=== PATIENT | male | born 1930 | race Caucasian/White ===

== ENCOUNTER 2016-06-13 11:33 | Inpatient (IN) | payer MEDICARE, OTHER ==
[~2016-06-13] VITALS: Ht 182.9 cm; Wt 97.5 kg
[~2016-06-13 11:33] MED LIST: ASPI-482 PO; DIGO125T PO; LISI10TA2 PO; LOSA50TA6 PO; METO50TA2 PO; OMEG1CAP16 PO; SIMV40TA3 PO
[2016-06-13] MEDS ORDERED: IV NORMAL SALINE 500ML BAG 500 ML IV ONE (12:00)
[2016-06-13] MEDS ORDERED: ONDANSETRON PF 4 MG/2 ML VIAL. IV ONE (12:00)
[2016-06-13 12:18] LABS: BASO % 0 % (0-3); EOS % 1 % (0-3); HEMOGLOBIN 12.7 g/dL (13.0-17.5); LYMPH # 1.2 x10^3/uL (1.0-4.8); LYMPH % 14 % (24-48); MEAN CORPUSCULAR HEMOGLOBIN 30 pg (25-35); MEAN CORPUSCULAR HGB CONC 33 g/dL (31-37); MEAN CORPUSCULAR VOLUME 92 fL (79-100); MONO % 7 % (0-9); NEUT % 78 % (31-73); PLATELET COUNT 159 x10^3/uL (140-400); RED BLOOD COUNT 4.24 x10^6/uL (4.30-5.70); RED CELL DISTRIBUTION WIDTH 14.4 % (11.5-14.5); WHITE BLOOD COUNT 8.4 x10^3/uL (4.0-11.0)
--- NOTE | 2016-06-13 12:18 | PHYS DOC ---
Past Medical History Past Medical History: A-Fib, DVT, High Cholesterol, Hypertension, [place] Past Surgical History: Coronary Bypass Surgery, Other Additional Past Surgical Histo: RIGHT ARM & LEG SURGERY Alcohol Use: None Drug Use: None Adult General Chief Complaint Chief Complaint: NAUSEA/VOMITING/DIARRHA HPI HPI 85-year-old male whose presenting after a syncopal episode earlier today who is had ongoing nausea vomiting and diarrhea for the last several days. Patient denies any abdominal pain. He denies any chest pain. Patient is mildly short of breath with his symptoms. Patient only requires supplementary oxygen at night for history of sleep apnea. He has history of open heart surgery several years ago. He also has history of hypertension. believes he's had several syncopal episodes today and that is why she called EMS. Currently the patient feels weak but is able to answer my questions and follow my commands. He denies any specific complaints at this time. Review of Systems Review of Systems Constitutional: Denies fever or chills [] Eyes: Denies change in visual acuity, redness, or eye pain [] HENT: Denies nasal congestion or sore throat [] Respiratory: Denies cough or shortness of breath [] Cardiovascular: No additional information not addressed in HPI [] GI: Denies abdominal pain, has nausea, has vomiting, denies bloody stools, has diarrhea [] : Denies dysuria or hematuria [] Musculoskeletal: Denies back pain or joint pain [] Integument: Denies rash or skin lesions [] Neurologic: Denies headache, focal weakness or sensory changes [] Endocrine: Denies polyuria or polydipsia [] Current Medications Current Medications Current Medications Medications (Trade) Dose Ordered Sig/Minnie Start Time Stop Time Status Last Admin Dose Admin Ondansetron HCl 4 mg 4 mg 1X ONCE 06/13/16 12:00 06/13/16 12:03 DC 06/13/16 12:19 4 MG Sodium Chloride (Iv Sodium Chloride 0.9% 500ml Bag) 500 ml @ 500 mls/hr 1X ONCE 06/13/16 12:00 06/13/16 12:59 06/13/16 12:17 500 MLS/HR Allergies Allergies Allergies Coded Allergies Type Severity Reaction Last Updated Verified Penicillins Allergy Intermediate 06/13/16 Yes diphenhydramine Allergy Intermediate 06/13/16 Yes codeine Allergy Unknown 06/13/16 No Physical Exam Physical Exam Constitutional: Well developed, well nourished, no acute distress, non-toxic appearance. [] HENT: Normocephalic, atraumatic, bilateral external ears normal, oropharynx moist, no oral exudates, nose normal. [] Eyes: PERRLA, EOMI, conjunctiva normal, no discharge. [] Neck: Normal range of motion, no tenderness, supple, no stridor. [] Cardiovascular:Heart rate regular rhythm, no murmur [] Lungs & Thorax: Bilateral breath sounds clear to auscultation [] Abdomen: Bowel sounds normal, soft, no tenderness, no masses, no pulsatile masses. [] Skin: Warm, dry, no erythema, no rash. [] Back: No tenderness, no CVA tenderness. [] Extremities: No tenderness, no cyanosis, no clubbing, ROM intact, no edema. [] Neurologic: Alert and oriented X 3, normal motor function, normal sensory function, no focal deficits noted. [] Psychologic: Affect normal, judgement normal, mood normal. [] Current Patient Data Vital Signs Vital Signs Date Time Temp Pulse Resp B/P Pulse Ox O2 Delivery O2 Flow Rate FiO2 06/13/16 11:33 98.9 76 20 137/61 96 Nasal Cannula 4 98.9 Lab Values Laboratory Tests Test 06/13/16 11:50 White Blood Count 8.4x10^3/uL (4.0-11.0) Red Blood Count 4.24x10^6/uL (4.30-5.70) L Hemoglobin 12.7g/dL (13.0-17.5) L Hematocrit 39.0% (39.0-53.0) Mean Corpuscular Volume 92fL (79-100) Mean Corpuscular Hemoglobin 30pg (25-35) Mean Corpuscular Hemoglobin Concent 33g/dL (31-37) Red Cell Distribution Width 14.4% (11.5-14.5) Platelet Count 159x10^3/uL (140-400) Neutrophils (%) (Auto) 78% (31-73) H Lymphocytes (%) (Auto) 14% (24-48) L Monocytes (%) (Auto) 7% (0-9) Eosinophils (%) (Auto) 1% (0-3) Basophils (%) (Auto) 0% (0-3) Neutrophils # (Auto) 6.6x10^3uL (1.8-7.7) Lymphocytes # (Auto) 1.2x10^3/uL (1.0-4.8) Monocytes # (Auto) 0.6x10^3/uL (0.0-1.1) Eosinophils # (Auto) 0.0x10^3/uL (0.0-0.7) Basophils # (Auto) 0.0x10^3/uL (0.0-0.2) Sodium Level 146mmol/L (136-145) H Potassium Level 4.8mmol/L (3.5-5.1) Chloride Level 107mmol/L (98-107) Carbon Dioxide Level 27mmol/L (21-32) Anion Gap 12 (6-14) Blood Urea Nitrogen 46mg/dL (8-26) H Creatinine 2.2mg/dL (0.7-1.3) H Estimated GFR (Cockcroft-Gault) 28.6 Glucose Level 192mg/dL (70-99) H Calcium Level 8.4mg/dL (8.5-10.1) L Laboratory Tests 06/13/16 11:50 Laboratory Tests 06/13/16 11:50 EKG EKG EKG is interpreted by me shows a sinus rhythm with rate of 75 bpm. There is a leftward axis. This is a nonischemic EKG. There are no acute ST findings. Intervals are normal. There is no ectopy. Radiology/Procedures Radiology/Procedures One view of the chest as interpreted by me does not reveal an acute cardiopulmonary process. Course & Med Decision Making Course & Med Decision Making Pertinent Labs and Imaging studies reviewed. (See chart for details) This 85-year-old male who presents with several syncopal episodes today is likely dehydrated and in need of IV fluids. IV fluid bolus be administered in the department as well as a dose of Zofran. Laboratory studies will be obtained. Due to his need for oxygen at this time I will be obtaining a portable chest x-ray. I do not see any indication at this time to obtain any other imaging. Patient is not having any pain. Syncopal episodes are likely the result of severe dehydration from a GI illness. Lab return workup reveals acute renal insufficiency with a creatinine of 2.2 and elevated P1 above his normal baseline. I discussed the case with the hospitalist, Dr. Hogue who agreed with the admission and to continue to rehydrate the patient. Portable one view of his chest at this time did not reveal any acute abnormalities. He was admitted for ongoing dehydration and the need of rehydration therapy. Dragon Disclaimer Dragon Disclaimer This electronic medical record was generated, in whole or in part, using a voice recognition dictation system. Departure Departure Impression: Primary Impression: Syncope Additional Impressions: Dehydration Renal insufficiency Weakness Disposition: ADMITTED INPATIENT Admitting Physician: Reyes Hogue Condition: STABLE Referrals: REYES HOGUE MD (PCP) Problem Qualifiers ADELA WARREN DO Jun 13, 2016 12:18
[2016-06-13 12:22] LABS: CALCIUM 8.4 mg/dL (8.5-10.1); CREATININE 2.2 mg/dL (0.7-1.3); GFR 28.6; POTASSIUM 4.8 mmol/L (3.5-5.1)
[2016-06-13] MEDS ORDERED: ONDANSETRON PF 4 MG/2 ML VIAL. IV PRN ×2 (12:30→18:45)
[2016-06-13] MEDS ORDERED: ACETAMINOPHEN 325 MG TABLET. PO PRN (12:30)
--- NOTE | 2016-06-13 12:34 | RAD ---
EXAM: Chest, single view. HISTORY: Epigastric pain and cough. COMPARISON: 04/03/2015. FINDINGS: Frontal view of the chest is obtained. There is no infiltrate, effusion or pneumothorax. The heart is normal in size. There are findings consistent with CABG. IMPRESSION: No acute pulmonary finding.
--- NOTE | 2016-06-13 12:40 | EKG ---
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
[2016-06-13] MEDS: IV NORMAL SALINE 1000ML BAG 1,000 ML IV SCH ×2 (12:56→14:00)
[2016-06-13 14:06] VITALS: BP 132/52
[2016-06-13 15:00] VITALS: BP 132/52
[2016-06-13] MEDS ORDERED: DOXA2TAB2 PO (16:48)
[2016-06-13] MEDS ORDERED: CHLO25TA PO (16:49)
[2016-06-13] MEDS: IV DEXTROSE 5%-LACT RINGERS 1,000 ML IV SCH (18:41)
[2016-06-13 19:00] VITALS: BP 137/59
[2016-06-13] MEDS: METOPROLOL TART IMMED RELEASE 50 MG TABLET PO SCH (20:32)
[2016-06-13 23:00] VITALS: BP 124/49
[2016-06-14] MEDS: IV DEXTROSE 5%-LACT RINGERS 1,000 ML IV SCH ×3 (02:35→18:43)
[2016-06-14 03:00] VITALS: BP 128/58
[2016-06-14 06:14] LABS: BASO % 1 % (0-3); EOS % 1 % (0-3); HEMATOCRIT 34.7 % (39.0-53.0); HEMOGLOBIN 11.3 g/dL (13.0-17.5); LYMPH # 1.7 x10^3/uL (1.0-4.8); LYMPH % 31 % (24-48); MEAN CORPUSCULAR HEMOGLOBIN 31 pg (25-35); MEAN CORPUSCULAR HGB CONC 33 g/dL (31-37); MEAN CORPUSCULAR VOLUME 94 fL (79-100); MONO % 16 % (0-9); NEUT % 52 % (31-73); PLATELET COUNT 136 x10^3/uL (140-400); RED CELL DISTRIBUTION WIDTH 15.2 % (11.5-14.5); WHITE BLOOD COUNT 5.6 x10^3/uL (4.0-11.0)
[2016-06-14 06:32] LABS: CALCIUM 7.7 mg/dL (8.5-10.1); GFR 31.9; POTASSIUM 4.1 mmol/L (3.5-5.1)
[2016-06-14 07:00] VITALS: BP 116/51
[2016-06-14] MEDS: METOPROLOL TART IMMED RELEASE 50 MG TABLET PO SCH ×2 (08:28→20:54)
--- NOTE | 2016-06-14 09:54 | RAD ---
EXAM: Renal sonogram. HISTORY: Renal failure. TECHNIQUE: Sonographic imaging of the kidneys and bladder was performed. COMPARISON: None. FINDINGS: The right kidney measures 11.4 cm [id number] and the left kidney measures 13.1 cm [id number]. There is a partially exophytic cyst within the lower pole the left kidney measuring 3.0 cm in maximum dimension. There is a suspected complex cyst within the left mid zone to lower pole measuring 8.1 cm in maximum dimension. There is no hydronephrosis. The bladder is decompressed. IMPRESSION: 1. 8.1 cm suspected complex cyst within the mid zone to lower pole of the left kidney, previously measuring 7.1 cm. The slow interval change favors benignity. 2. 3.0 cm simple appearing cyst within the left lower pole, without a correlate on the prior study. 3. Decompressed bladder.
[2016-06-14] MEDS: ASPIRIN ENTERIC COATED 81 MG TABLET.DR. PO SCH (10:09)
--- NOTE | 2016-06-14 10:58 | PDOC ---
OBJECTIVE Vital Signs Vital Signs Date Time Temp Pulse Resp B/P Pulse Ox O2 Delivery O2 Flow Rate FiO2 06/14/16 08:28 57 116/51 06/14/16 08:00 Room Air 06/14/16 07:00 99.0 57 20 116/51 92 Room Air 99.0 06/14/16 03:00 98.5 64 20 128/58 92 Room Air 98.5 06/13/16 23:00 98.7 66 124/49 94 Room Air 98.7 06/13/16 20:32 70 137/80 06/13/16 19:33 Nasal Cannula 2.0 06/13/16 19:00 98.9 70 20 137/59 92 Room Air 98.9 06/13/16 15:00 97.9 80 18 132/52 94 Nasal Cannula 2.0 97.9 06/13/16 14:30 Nasal Cannula 2.0 06/13/16 14:06 97.9 80 18 132/52 Nasal Cannula 2.0 97.9 06/13/16 12:30 76 18 138/62 98 06/13/16 12:00 72 19 153/69 97 Room Air 06/13/16 11:33 98.9 76 20 137/61 96 Nasal Cannula 4 98.9 I & O Intake and Output 06/14/16 07:00 Intake Total 2025 ml Output Total 200 ml Balance 1825 ml Intake Oral 100 ml IV Total 1925 ml Output Urine Total 200 ml # Bowel Movements 1 ASSESSMENT/PLAN Assessment/Plan [id number] h&p DICTATED Problems: COMMENT Lab Laboratory Tests Test 06/13/16 11:50 06/14/16 05:17 White Blood Count 8.4x10^3/uL (4.0-11.0) 5.6x10^3/uL (4.0-11.0) Red Blood Count 4.24x10^6/uL (4.30-5.70) 3.70x10^6/uL (4.30-5.70) Hemoglobin 12.7g/dL (13.0-17.5) 11.3g/dL (13.0-17.5) Hematocrit 39.0% (39.0-53.0) 34.7% (39.0-53.0) Mean Corpuscular Volume 92fL (79-100) 94fL (79-100) Mean Corpuscular Hemoglobin 30pg (25-35) 31pg (25-35) Mean Corpuscular Hemoglobin Concent 33g/dL (31-37) 33g/dL (31-37) Red Cell Distribution Width 14.4% (11.5-14.5) 15.2% (11.5-14.5) Platelet Count 159x10^3/uL (140-400) 136x10^3/uL (140-400) Neutrophils (%) (Auto) 78% (31-73) 52% (31-73) Lymphocytes (%) (Auto) 14% (24-48) 31% (24-48) Monocytes (%) (Auto) 7% (0-9) 16% (0-9) Eosinophils (%) (Auto) 1% (0-3) 1% (0-3) Basophils (%) (Auto) 0% (0-3) 1% (0-3) Neutrophils # (Auto) 6.6x10^3uL (1.8-7.7) 2.9x10^3uL (1.8-7.7) Lymphocytes # (Auto) 1.2x10^3/uL (1.0-4.8) 1.7x10^3/uL (1.0-4.8) Monocytes # (Auto) 0.6x10^3/uL (0.0-1.1) 0.9x10^3/uL (0.0-1.1) Eosinophils # (Auto) 0.0x10^3/uL (0.0-0.7) 0.0x10^3/uL (0.0-0.7) Basophils # (Auto) 0.0x10^3/uL (0.0-0.2) 0.0x10^3/uL (0.0-0.2) Sodium Level 146mmol/L (136-145) 142mmol/L (136-145) Potassium Level 4.8mmol/L (3.5-5.1) 4.1mmol/L (3.5-5.1) Chloride Level 107mmol/L (98-107) 106mmol/L (98-107) Carbon Dioxide Level 27mmol/L (21-32) 30mmol/L (21-32) Anion Gap 12 (6-14) 6 (6-14) Blood Urea Nitrogen 46mg/dL (8-26) 36mg/dL (8-26) Creatinine 2.2mg/dL (0.7-1.3) 2.0mg/dL (0.7-1.3) Estimated GFR (Cockcroft-Gault) 28.6 31.9 Glucose Level 192mg/dL (70-99) 103mg/dL (70-99) Calcium Level 8.4mg/dL (8.5-10.1) 7.7mg/dL (8.5-10.1) Troponin I Quantitative 0.026ng/mL (0.000-0.055) Digoxin Level 1.0ng/mL (0.9-2.0) Digoxin Last Dose Date 06/12/16 Digoxin Last Dose Time 0800 JOSE GUERRIER MD Jun 14, 2016 10:58
[2016-06-14 11:00] VITALS: BP 142/54
[2016-06-14] MEDS ORDERED: ENOXAPARIN 30 MG/0.3 ML DISP.SYRIN. SQ SCH (11:00)
[2016-06-14] MEDS ORDERED: MAG HYDROX/AL HYDROX/SIMETH 30 ML ORAL.SUSP PO ONE (11:30)
[2016-06-14] MEDS: PANTOPRAZOLE 40 MG TABLET. PO SCH (12:35)
--- NOTE | 2016-06-14 12:45 | PREOP HP ---
DATE OF SERVICE: HISTORY OF PRESENT ILLNESS: The patient is an 85-year-old gentleman who presented to the Emergency Room after having syncope episode at home. He has been sick with gastroenteritis type of symptoms, nausea, vomiting and diarrhea for a few days prior to his arrival. He stated he was becoming weaker and was getting dizzy and about to fall every time he stands up. His called the EMS and he was brought to the Emergency Room for further evaluation. He denied abdominal pain, denied chest pain. He does have mild shortness of breath, but not much worse than his baseline. He usually does have oxygen that he uses at home at night. PAST MEDICAL HISTORY: Significant for sleep apnea, coronary artery disease and coronary artery bypass graft in 1999, hyperlipidemia, atrial fibrillation, hypertension. He is hard of hearing and recently got hearing aids that he has not been using much. He does have a history of skin cancer and history of left arm and right leg fractures. He also has a history of right eye cataract surgery. FAMILY HISTORY: Positive for hypertension, diabetes, cardiovascular disease, autoimmune disease and asthma. SOCIAL HISTORY: He is , lives with his for 60 years. He does not smoke, drink alcohol or use drugs. He had received a flu shot and pneumonia vaccine. REVIEW OF SYSTEMS: CONSTITUTIONAL: Denies fever or chills. EYES: Denies visual changes. HENT: Denies nasal congestion. He does have feeling of his throat being raw probably due to vomiting. RESPIRATORY: Denies cough, minimal shortness of breath. CARDIOVASCULAR: No chest pain. GASTROINTESTINAL: Has had nausea, vomiting and diarrhea for several days, but since he has been in the hospital those symptoms had resolved. He denies abdominal pain. GENITOURINARY: Denies dysuria or hematuria. MUSCULOSKELETAL: He does have some arthritis, but no acute pain. DERMATOLOGY: Denies rashes. PHYSICAL EXAMINATION: GENERAL: He is alert and oriented, very pleasant, nontoxic appearing gentleman. HEENT: Mild erythema in the pharynx. No oral exudates and the mucosa is moist. Eyes: His conjunctiva is normal. No discharge. NECK: Supple. HEART: Irregular. LUNGS: Clear to auscultation. ABDOMEN: Soft and nontender, no masses, no bruits, no ascites. SKIN: Warm and dry. BACK: He does not have CVA tenderness. EXTREMITIES: No edema, clubbing or cyanosis. NEUROLOGIC: Intact. IMPRESSION: 1. Syncope due to hypovolemia and dehydration. 2. Dehydration due to nausea, vomiting, diarrhea and gastroenteritis symptoms. 3. Acute renal insufficiency due to dehydration. 4. Weakness. 5. Previous history of coronary artery disease and coronary artery bypass graft. 6. Previous history of atrial fibrillation. 7. Hypertension, hyperlipidemia. 8. Previous history of deep venous thrombosis, we will start prophylaxis. JOSE GUERRIER MD DR: ENIO/nam JOB#: [id number] / [id number]
[2016-06-14] MEDS ORDERED: ACETAMINOPHEN 325 MG TABLET. PO PRN ×2 (14:45)
[2016-06-14 15:00] VITALS: BP 138/48
[2016-06-14 19:00] VITALS: BP 165/67
[2016-06-14] MEDS ORDERED: SIMVASTATIN 40 MG TABLET. PO SCH (21:00)
[2016-06-14] MEDS ORDERED: DOXAZOSIN MESYLATE 4 MG TABLET PO SCH (21:00)
[2016-06-14 23:00] VITALS: BP 159/66
[2016-06-15] MEDS: IV DEXTROSE 5%-LACT RINGERS 1,000 ML IV SCH (01:57)
[2016-06-15 03:00] VITALS: BP 131/61
[2016-06-15 06:01] LABS: HEMOGLOBIN 11.3 g/dL (13.0-17.5); RED BLOOD COUNT 3.69 x10^6/uL (4.30-5.70); RED CELL DISTRIBUTION WIDTH 15.2 % (11.5-14.5)
[2016-06-15 06:15] LABS: ALBUMIN 2.9 g/dL (3.4-5.0); ALBUMIN/GLOBULIN RATIO 0.8 (1.0-1.7); CALCIUM 7.9 mg/dL (8.5-10.1); CREATININE 1.8 mg/dL (0.7-1.3); TOTAL BILIRUBIN 0.3 mg/dL (0.2-1.0); TOTAL PROTEIN 6.6 g/dL (6.4-8.2)
[2016-06-15 07:15] VITALS: BP 144/60
--- NOTE | 2016-06-15 07:56 | DISCH ---
DISCHARGE INSTRUCTIONS Condition on Discharge Condition on Discharge: Stable Activity After Discharge Activity Instructions for Disc: No restrictions Diet after Discharge Diet after Discharge: Regular Follow-Up Follow up with: JERRY Sanchez MD Jun 15, 2016 07:56
--- NOTE | 2016-06-15 07:59 | PDOC ---
Provider Note Provider Note [id number] JERRY LARA MD Jun 15, 2016 07:59
[2016-06-15] MEDS: ASPIRIN ENTERIC COATED 81 MG TABLET.DR. PO SCH ×2 (08:22→08:30)
[2016-06-15] MEDS: PANTOPRAZOLE 40 MG TABLET. PO SCH ×2 (08:23→08:27)
[2016-06-15] MEDS: METOPROLOL TART IMMED RELEASE 50 MG TABLET PO SCH ×2 (08:25→08:26)
[2016-06-15 08:26] VITALS: BP 60/50
--- NOTE | 2016-06-15 15:27 | DS ---
DATE OF DISCHARGE: 06/15/2016 HOSPITAL COURSE: An 85-year-old white male came in after eating Thai dinner and about an hour later, developed acute onset of nausea, vomiting and diarrhea. CBC was normal. Chemistry profile showed BUN elevated at 36, creatinine at 2.0, above his normal baseline of creatinine 1.8 and his creatinine on next day was down to 1.8. Rest of chemistry profile was normal. Digoxin level was normal as well. Ultrasound of the kidneys showed an 8-cm complex cyst in the left lower kidney, slightly larger than before with no significant change, otherwise unremarkable. Chest x-ray was clear. COURSE IN HOSPITAL: He received IV fluid replacement and symptomatic treatment and his GI symptoms gradually subsided. He was able to transfer to regular diet, vital signs are stable and he is comfortable to be discharged and followed as an outpatient at this point. FINAL DIAGNOSES: 1. Acute food poisoning. 2. Prerenal azotemia secondary to dehydration, resolved. OPERATIONS, PROCEDURES, COMPLICATIONS, AND CONSULTATIONS: None. DISPOSITION: Discharged home on all home medicines remaining the same with no change. The renal cyst will be followed with yearly sonogram, but appears to be just a large benign cyst and office followup as scheduled. PROGNOSIS: Good. JERRY LARA MD DR: KRYSTAL/nam JOB#: [id number] / [id number]
== END 2016-06-15 09:15 | disposition home or self-care (01) | DRG 683 ==
LOC: ER 11:33 → 5 SOUTH 12:23
PROVIDERS: ADMIT Family Medicine; ATTEND Family Medicine
DX: N17.9 Acute kidney failure, unspecified (principal); K52.1 Toxic gastroenteritis and colitis; E86.0 Dehydration; E86.1 Hypovolemia; E78.00 Pure hypercholesterolemia, unspecified; E78.5 Hyperlipidemia, unspecified; H91.90 Unspecified hearing loss, unspecified ear; I10 Essential (primary) hypertension; I25.10 Atherosclerotic heart disease of native coronary artery without angina pectoris; I48.91 Unspecified atrial fibrillation; R55 Syncope and collapse; N28.9 Disorder of kidney and ureter, unspecified; R39.2 Extrarenal uremia; A05.9 Bacterial foodborne intoxication, unspecified; Z82.49 Family history of ischemic heart disease and other diseases of the circulatory system; Z82.5 Family history of asthma and other chronic lower respiratory diseases; Z83.3 Family history of diabetes mellitus; Z85.828 Personal history of other malignant neoplasm of skin; Z95.1 Presence of aortocoronary bypass graft; I25.2 Old myocardial infarction; Z88.5 Allergy status to narcotic agent; Z88.0 Allergy status to penicillin; Z88.8 Allergy status to other drugs, medicaments and biological substances; Z98.41 Cataract extraction status, right eye; T62.8X1A Toxic effect of other specified noxious substances eaten as food, accidental (unintentional), initial encounter; Y92.9 Unspecified place or not applicable
CPT/HCPCS: 36415; 71010; 76770; 80048; 80053; 80162; 82947; 83036; 84484; 85027; 93005; 96361; 96374; J1650; J2405; J7030; J7040; 99285-25

== ENCOUNTER 2019-02-01 13:05 | Inpatient (IN) | payer MEDICARE ==
[~2019-02-01] VITALS: Ht 162.6 cm; Wt 93.7 kg
[~2019-02-01 13:05] MED LIST changes: +CHLO25TA10 PO; +DOXA2TAB2 PO; +LOSA-73 PO; -LOSA50TA6 PO; -METO50TA2 PO; +METO50TA6 PO; -OMEG1CAP16 PO; +OMEG1CAP27 PO
--- NOTE | 2019-02-01 15:21 | NUR ---
PT ARRIVED TO ROOM 582 ACCOMPANIED BY SPOUSE. ORIENTED TO ROOM AND CALL LIGHT. PT PLACED IN HOSPITAL GOWN.
--- NOTE | 2019-02-01 15:31 | NUR ---
PG TO DR. LARA RE BP 70/30 AND 80/30
--- NOTE | 2019-02-01 16:36 | HP ---
ADMIT DATE: 02/01/2019 CHIEF COMPLAINT: Worsening renal function. HISTORY OF PRESENT ILLNESS: This 88-year-old white male was seen on the day prior to admission in the office in followup for hypertension and CKD 3. He had had some weakness and more recent dizziness and mild diarrhea in the last few days. Exam was unremarkable, but laboratory study showed his creatinine to be 3.0 at worst, it had been 2.1 about 6-8 months prior. He denies any difficulty with voiding and any urinary symptoms such as blood, odor, or other complaints and his fluid intake is normal for him. He is admitted for evaluation of acute renal failure and intervention to see if there is a reversible component. PAST MEDICAL HISTORY: He has a history of hypertension for which he takes chlorthalidone, amlodipine, losartan, and metoprolol. Renal function has been decreased for some years, but 4 years ago, his creatinine was only 1.6. He takes simvastatin for cholesterol. He has had coronary artery bypass surgery some years ago and has been stable without further problems with that. ALLERGIES: He has no known drug allergies. SOCIAL HISTORY: Quit smoking in 1960s. He is . He is physically relatively inactive. He is a nondrinker. FAMILY HISTORY: Unremarkable. REVIEW OF SYSTEMS: No other specific complaints except for worsening fatigue. OBJECTIVE: ENT: All within normal limits. NECK: No carotid bruits, nodes or masses. LUNGS: Clear with decreased breath sounds. CARDIOVASCULAR: Regular rate. Heart tones distant. No murmurs heard. ABDOMEN: Obese, soft, benign and nontender. EXTREMITIES: He has 2+ edema of the lower legs. There is no clubbing or cyanosis. Left radial pulses reduced. The dorsalis pulses are normal. NEUROLOGIC: Physiologic and nonfocal. ASSESSMENT: 1. Worsening renal function, multifactorial in nature including medications, arterial sclerosis and other possible considerations. 2. History of coronary artery disease, status post coronary artery bypass surgery. 3. Hypertension. 4. Chronic fatigue, likely secondary to worsening renal function. PLAN: Admit for hydration, urologic sonography and medication adjustments and Renal consult. JERRY LARA MD DR: KRYSTAL/nam JOB#: [id number] / [id number]
[2019-02-01] MEDS ORDERED: OXYB5TAB2 PO (16:46)
[2019-02-01] MEDS ORDERED: CITA10TA4 PO (16:46)
[2019-02-01] MEDS ORDERED: METO25TA4 PO (16:46)
[2019-02-01 16:47] LABS: BASO % 0 % (0-3); EOS # 0.1 x10^3/uL (0.0-0.7); EOS % 1 % (0-3); HEMATOCRIT 31.5 % (36.0-47.0); HEMOGLOBIN 10.6 g/dL (12.0-15.5); LYMPH # 1.7 x10^3/uL (1.0-4.8); LYMPH % 21 % (24-48); MEAN CORPUSCULAR HEMOGLOBIN 32 pg (25-35); MEAN CORPUSCULAR HGB CONC 34 g/dL (31-37); MEAN CORPUSCULAR VOLUME 94 fL (79-100); MONO # 1.3 x10^3/uL (0.0-1.1); MONO % 15 % (0-9); NEUT # 5.4 x10^3/uL (1.8-7.7); NEUT % 63 % (31-73); PLATELET COUNT 200 x10^3/uL (140-400); RED BLOOD COUNT 3.36 x10^6/uL (3.50-5.40); RED CELL DISTRIBUTION WIDTH 15.3 % (11.5-14.5); WHITE BLOOD COUNT 8.5 x10^3/uL (4.0-11.0)
[2019-02-01 16:53] LABS: CALCIUM 8.9 mg/dL (8.5-10.1); CREATININE 3.3 mg/dL (0.7-1.3); GFR 17.8; POTASSIUM 4.5 mmol/L (3.5-5.1)
[2019-02-01] MEDS: ASPIRIN ENTERIC COATED 81 MG TABLET.DR. PO SCH (17:00)
[2019-02-01] MEDS: CITALOPRAM 10 MG TABLET. PO SCH (17:00)
--- NOTE | 2019-02-01 17:08 | RAD ---
Examination: Ultrasound kidneys HISTORY: History of acute renal failure COMPARISON: 06/14/2016 FINDINGS: The right kidney measures 10.8 x 4.3 x 4.9 cm. The left kidney measures 13.8 x 3.3 x 7.6 cm. There is increased echogenicity identified in the bilateral kidneys could be due to medical renal disease. Cystic structures identified in the left kidney with the largest measuring 7.7 cm likely a cyst or cystic lesion similar to prior exam. The urinary bladder is moderately distended. IMPRESSION: 1. 7.7 cm cystic structure identified in the left kidney probably a cyst or cystic lesion. 2. Increased echogenicity identified in the bilateral kidneys probably due to medical renal disease. Electronically signed by: Toney Riley MD (02/01/2019 5:05 PM) [facility]
[2019-02-01] MEDS: IV DEXTROSE 5% - 0.9 % NACL 1,000 ML IV SCH (17:29)
[2019-02-01] MEDS ORDERED: FLU VAX QS 2019-20 (36MOS+)/PF 0.5 ML SYRINGE. VAX IM ONE (18:45)
[2019-02-01 19:00] VITALS: BP 110/37
[2019-02-01] MEDS: SIMVASTATIN 40 MG TABLET. PO SCH (20:53)
[2019-02-01] MEDS: METOPROLOL TART IMMED RELEASE 25 MG TABLET. PO SCH (20:54)
[2019-02-01] MEDS: DOXAZOSIN MESYLATE 1 MG TABLET. PO SCH (20:54)
[2019-02-01 22:36] LABS: BACTERIA,URINE 0 /HPF (0-FEW); BILIRUBIN,URINE NEGATIVE (NEG); CLARITY,URINE CLEAR; COLOR,URINE YELLOW; NITRITE,URINE NEGATIVE (NEG); PROTEIN,URINE NEGATIVE (NEG-TRACE); RBC,URINE OCC /HPF (0-2); UROBILINOGEN,URINE 0.2 mg/dL (0.2 mg/dL)
[2019-02-01 22:37] LABS: HYALINE CASTS, URINE MODERATE /HPF; SQUAMOUS EPITHELIAL CELL,UR OCC /LPF
[2019-02-01 23:00] VITALS: BP 96/58
[2019-02-02 03:00] VITALS: BP 100/50
[2019-02-02] MEDS: IV DEXTROSE 5% - 0.9 % NACL 1,000 ML IV SCH ×3 (03:37→23:41)
[2019-02-02 05:03] LABS: CALCIUM 8.1 mg/dL (8.5-10.1); CREATININE 2.8 mg/dL (0.7-1.3); GFR 21.5
[2019-02-02 07:00] VITALS: BP 112/40
--- NOTE | 2019-02-02 08:23 | PDOC ---
Provider Note Provider Note no temp, low bp better , still low output- exam same, creat down to 2.8- was 2.0 in 2017- ua clear, likely vasomotor nephropathy from meds, mainly chlorthalidone- cont iv saline, follow- sono free of hydro- JERRY LARA MD Feb 02, 2019 08:23
[2019-02-02] MEDS: CITALOPRAM 10 MG TABLET. PO SCH (09:01)
[2019-02-02] MEDS: ASPIRIN ENTERIC COATED 81 MG TABLET.DR. PO SCH (09:01)
[2019-02-02] MEDS: METOPROLOL TART IMMED RELEASE 25 MG TABLET. PO SCH ×2 (09:01→23:37)
[2019-02-02 11:00] VITALS: BP 121/42
--- NOTE | 2019-02-02 13:45 | PDOC2 ---
CONSULT Date of Consult Date of Consult DATE: 02/02/19 TIME: 13:27 Reason for Consult Reason for Consult: Ac Renal Failure Source Source: Caregiver, Chart review, Patient History of Present Illness Reason for Visit: Pt is a 88-year-old white male was seen BY PCP on the day prior to admission in the office in followup for hypertension and CKD 3. Pt and report that he has been having Diarrhea for last 3 weeks and was unable to keep anything. Any food was followed by watery diarrhea. She states it stated wuith her first but lasted for few days and resolved with Imodium but pt continued to have it and just stopped 2 days back. She states they contacted PCP and was advised hydration. He started feeling weak and recent dizzy Denies any N/V. No Urinary complaints. No Use of NSAID. 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 Baseline 2.1 about 6-8 months prior but approx 4 years ago Cr was 1.6 per PCP's note Home meds include chlorthalidone, amlodipine, losartan, and metoprolol for HTN . None of these are new Current Problem List Problem List Problems Medical Problems: (1) CAD (coronary artery disease) Status: Chronic (2) Fatigue Status: Chronic (3) Hypertension Status: Chronic (4) Worsening renal function Status: Chronic Current Medications Current Medications Current Medications Dextrose/Sodium Chloride 1,000 ml @ 100 mls/hr Q10H IV Last administered on 02/02/19at 03:37; Start 02/01/19 at 15:45 Aspirin (Ecotrin) 81 mg DAILY PO Last administered on 02/02/19at 09:01; Start 02/01/19 at 17:00 Citalopram Hydrobromide (CeleXA) 10 mg DAILY PO Last administered on 02/02/19 09:01; Start 02/01/19 at 17:00 Metoprolol Tartrate (Lopressor) 25 mg BID PO Last administered on 02/02/19 09:01; Start 02/01/19 at 21:00 Simvastatin (Zocor) 40 mg QHS PO Last administered on 02/01/19at 20:54; Start 02/01/19 at 21:00 Doxazosin Mesylate (Cardura) 2 mg QHS PO Last administered on 9/18/19at 20:54; Start 02/01/19 at 21:00 Influenza Virus Vaccine Quadrival (Afluria Quad 2019-20 (3yr Up) Syringe) 0.5 ml ONCE ONCE VAX IM ; Start 02/01/19 at 18:45; Stop 02/01/19 at 18:46; Status UNV Active Scripts Active Reported Metoprolol Tartrate 25 Mg Tablet 25 Mg PO BID Oxybutynin Chloride Er (Oxybutynin Chloride) 5 Mg Tab.er.24 5 Mg PO HS Citalopram Hbr (Citalopram Hydrobromide) 10 Mg Tablet 10 Mg PO DAILY Chlorthalidone (Chlorthalidone) 25 Mg Tablet 0.5 Tab PO DAILY Doxazosin Mesylate 2 Mg Tablet 1 Tab PO QHS Losartan Potassium 50 Mg Tablet 1 Tab PO DAILY Simvastatin 40 Mg Tablet 1 Tab PO QHS Fish Oil 1,000 Mg Softgel ([place]-3 Fatty Acids/Fish Oil) 1 Each Capsule 1 Each PO Aspir 81 (Aspirin) 81 Mg Tablet.dr 1 Tab PO DAILY Allergies Allergies: Coded Allergies: Penicillins (Verified Allergy, Intermediate, 06/13/16) diphenhydramine (Verified Allergy, Intermediate, 06/13/16) codeine (Unverified Allergy, Unknown, 06/13/16) ROS Review of System Per HPI Physical Exam Physical Exam GEN: NAD HEEN: OM moist NECK: Supple CVS: RRR RESP: CTA, Non labored GI: BS + ve, soft : No CVA tenderness, no Suprapubic Tenderness, No Menard NEURO Grossly normal SKIN No rash EXt No edema Vital Signs Vital Signs Date Time Temp Pulse Resp B/P (MAP) Pulse Ox O2 Delivery O2 Flow Rate FiO2 02/02/19 11:00 98.2 68 16 121/42 (68) 95 Room Air 98.2 02/02/19 07:00 2.0 Assessment & Plan DAVID- Prerenal , 2/2 Diarhea going on for 3 weeks and on Chlorthalidone UA unremarkable , Renal US distended bladder Cr peaked at 3,3 ,Improving renal function - down to 2.8 Hold Diuretics, Losartan Continue IVF started by PCP supportive care, strict I/O daily weight and daily BMP .Bladder scan if UOP inadequate , r/o urinary retention CKD stage 3- baseline Cr 1.8 -2.1 since 2014 In the past Cr 1.6 , suspect sec to HTN sive Nephrosclerosis , used to follow ith solid plasterer many yrs back US- Chr medical disease Renal Cyst - 7.7 cm cystic structure identified in the left kidney probably a cyst or cystic lesion. HTN- On antihypertensives Hold if BP staying low CAD s/p CABG Discussed with Pt, and RN at bedside Labs Labs Laboratory Tests Test 02/01/19 16:31 02/01/19 21:15 02/02/19 04:35 White Blood Count 8.5 x10^3/uL (4.0-11.0) Red Blood Count 3.36 x10^6/uL (3.50-5.40) Hemoglobin 10.6 g/dL (12.0-15.5) Hematocrit 31.5 % (36.0-47.0) Mean Corpuscular Volume 94 fL (79-100) Mean Corpuscular Hemoglobin 32 pg (25-35) Mean Corpuscular Hemoglobin Concent 34 g/dL (31-37) Red Cell Distribution Width 15.3 % (11.5-14.5) Platelet Count 200 x10^3/uL (140-400) Neutrophils (%) (Auto) 63 % (31-73) Lymphocytes (%) (Auto) 21 % (24-48) Monocytes (%) (Auto) 15 % (0-9) Eosinophils (%) (Auto) 1 % (0-3) Basophils (%) (Auto) 0 % (0-3) Neutrophils # (Auto) 5.4 x10^3/uL (1.8-7.7) Lymphocytes # (Auto) 1.7 x10^3/uL (1.0-4.8) Monocytes # (Auto) 1.3 x10^3/uL (0.0-1.1) Eosinophils # (Auto) 0.1 x10^3/uL (0.0-0.7) Basophils # (Auto) 0.0 x10^3/uL (0.0-0.2) Sodium Level 142 mmol/L (136-145) 141 mmol/L (136-145) Potassium Level 4.5 mmol/L (3.5-5.1) 4.0 mmol/L (3.5-5.1) Chloride Level 108 mmol/L (98-107) 110 mmol/L (98-107) Carbon Dioxide Level 24 mmol/L (21-32) 18 mmol/L (21-32) Anion Gap 10 (6-14) 13 (6-14) Blood Urea Nitrogen 67 mg/dL (8-26) 67 mg/dL (8-26) Creatinine 3.3 mg/dL (0.7-1.3) 2.8 mg/dL (0.7-1.3) Estimated GFR (Cockcroft-Gault) 17.8 21.5 Glucose Level 105 mg/dL (70-99) 111 mg/dL (70-99) Calcium Level 8.9 mg/dL (8.5-10.1) 8.1 mg/dL (8.5-10.1) Urine Collection Type Unknown Urine Color Yellow Urine Clarity Clear Urine pH 5.0 Urine Specific Clint 1.015 Urine Protein Negative mg/dL (NEG-TRACE) Urine Glucose (UA) Negative mg/dL (NEG) Urine Ketones (Stick) Negative mg/dL (NEG) Urine Blood Negative (NEG) Urine Nitrite Negative (NEG) Urine Bilirubin Negative (NEG) Urine Urobilinogen Dipstick 0.2 mg/dL (0.2 mg/dL) Urine Leukocyte Esterase Negative (NEG) Urine RBC Occ /HPF (0-2) Urine WBC 1-4 /HPF (0-4) Urine Squamous Epithelial Cells Occ /LPF Urine Bacteria 0 /HPF (0-FEW) Urine Hyaline Casts Moderate /HPF Urine Mucus Mod /LPF Laboratory Tests Test 02/01/19 16:31 02/01/19 21:15 02/02/19 04:35 White Blood Count 8.5 x10^3/uL (4.0-11.0) Red Blood Count 3.36 x10^6/uL (3.50-5.40) Hemoglobin 10.6 g/dL (12.0-15.5) Hematocrit 31.5 % (36.0-47.0) Mean Corpuscular Volume 94 fL (79-100) Mean Corpuscular Hemoglobin 32 pg (25-35) Mean Corpuscular Hemoglobin Concent 34 g/dL (31-37) Red Cell Distribution Width 15.3 % (11.5-14.5) Platelet Count 200 x10^3/uL (140-400) Neutrophils (%) (Auto) 63 % (31-73) Lymphocytes (%) (Auto) 21 % (24-48) Monocytes (%) (Auto) 15 % (0-9) Eosinophils (%) (Auto) 1 % (0-3) Basophils (%) (Auto) 0 % (0-3) Neutrophils # (Auto) 5.4 x10^3/uL (1.8-7.7) Lymphocytes # (Auto) 1.7 x10^3/uL (1.0-4.8) Monocytes # (Auto) 1.3 x10^3/uL (0.0-1.1) Eosinophils # (Auto) 0.1 x10^3/uL (0.0-0.7) Basophils # (Auto) 0.0 x10^3/uL (0.0-0.2) Sodium Level 142 mmol/L (136-145) 141 mmol/L (136-145) Potassium Level 4.5 mmol/L (3.5-5.1) 4.0 mmol/L (3.5-5.1) Chloride Level 108 mmol/L (98-107) 110 mmol/L (98-107) Carbon Dioxide Level 24 mmol/L (21-32) 18 mmol/L (21-32) Anion Gap 10 (6-14) 13 (6-14) Blood Urea Nitrogen 67 mg/dL (8-26) 67 mg/dL (8-26) Creatinine 3.3 mg/dL (0.7-1.3) 2.8 mg/dL (0.7-1.3) Estimated GFR (Cockcroft-Gault) 17.8 21.5 Glucose Level 105 mg/dL (70-99) 111 mg/dL (70-99) Calcium Level 8.9 mg/dL (8.5-10.1) 8.1 mg/dL (8.5-10.1) Urine Collection Type Unknown Urine Color Yellow Urine Clarity Clear Urine pH 5.0 Urine Specific Clint 1.015 Urine Protein Negative mg/dL (NEG-TRACE) Urine Glucose (UA) Negative mg/dL (NEG) Urine Ketones (Stick) Negative mg/dL (NEG) Urine Blood Negative (NEG) Urine Nitrite Negative (NEG) Urine Bilirubin Negative (NEG) Urine Urobilinogen Dipstick 0.2 mg/dL (0.2 mg/dL) Urine Leukocyte Esterase Negative (NEG) Urine RBC Occ /HPF (0-2) Urine WBC 1-4 /HPF (0-4) Urine Squamous Epithelial Cells Occ /LPF Urine Bacteria 0 /HPF (0-FEW) Urine Hyaline Casts Moderate /HPF Urine Mucus Mod /LPF Review All relevant outside records, renal labs, imaging studies, telemetry/EKG's were reviewed. Images Images The right kidney measures 10.8 x 4.3 x 4.9 cm. The left kidney measures 13.8 x 3.3 x 7.6 cm. There is increased echogenicity identified in the bilateral kidneys could be due to medical renal disease. Cystic structures identified in the left kidney with the largest measuring 7.7 cm likely a cyst or cystic lesion similar to prior exam. The urinary bladder is moderately distended. IMPRESSION: 1. 7.7 cm cystic structure identified in the left kidney probably a cyst or cystic lesion. 2. Increased echogenicity identified in the bilateral kidneys probably due to medical renal disease. JOSHUA WIN MD Feb 02, 2019 13:45
[2019-02-02 15:00] VITALS: BP 96/40
[2019-02-02 19:00] VITALS: BP 100/73
[2019-02-02 23:00] VITALS: BP 124/73
[2019-02-02] MEDS: DOXAZOSIN MESYLATE 1 MG TABLET. PO SCH (23:36)
[2019-02-02] MEDS: SIMVASTATIN 40 MG TABLET. PO SCH (23:36)
[2019-02-03 03:00] VITALS: BP 107/35
[2019-02-03 05:54] LABS: CALCIUM 8.2 mg/dL (8.5-10.1); CREATININE 2.4 mg/dL (0.7-1.3); GFR 25.7; POTASSIUM 4.6 mmol/L (3.5-5.1)
--- NOTE | 2019-02-03 06:45 | NUR ---
Patient's IV infiltrated, attempt to restart x 2, patient complains about 'being poked by you and lab..I'm going home today..I don't want to be stuck, why do I have to?" Chief Executive Or Managing Director notified, came up to floor, patient was on the phone with his , "when are you coming to get me..They keep sticking me..' Leaving out patient's iv for now.
[2019-02-03 07:00] VITALS: BP 120/38
--- NOTE | 2019-02-03 08:29 | PDOC ---
Provider Note Provider Note [id number] JERRY LARA MD Feb 03, 2019 08:29
--- NOTE | 2019-02-03 09:40 | NUR ---
DISCHARGE INSTRUCTIONS GIVEN TO PATIENT PER NURSE CUSTODIAL WORKER ON THE UNIT, QUESTIONS AND CONCERNS ANSWERED, PATIENT AND AT THE BEDSIDE VERBALIZED UNDERSTANDING OF DISCHARGE INFORMATION INCLUDING TAKING ALL MEDICATIONS INSTRUCTED AND FOLLOWING UP WITH DR. CERVANTES IN 1 WEEK. ALL PERSONAL BELONGINGS GATHERED BY THE PATIENT AND HIS OAND PLACED IN BAGS FOR DISCHARGE.
[2019-02-03] MEDS: CITALOPRAM 10 MG TABLET. PO SCH (09:47)
[2019-02-03 09:48] VITALS: BP 120/38
[2019-02-03] MEDS: METOPROLOL TART IMMED RELEASE 25 MG TABLET. PO SCH (09:48)
[2019-02-03] MEDS: ASPIRIN ENTERIC COATED 81 MG TABLET.DR. PO SCH (09:48)
--- NOTE | 2019-02-03 09:50 | NUR ---
PATIENT LEAVES THE UNIT BY WHEELCHAIR ALONGSIDE THIS [employer] TALEO MANAGER AND HIS . EMOTIONAL SUPPORT GIVEN, FOLLOW UP APPOINTMENTS ENCOURAGED.
--- NOTE | 2019-02-03 19:02 | DS ---
DATE OF DISCHARGE: 02/03/2019 HOSPITAL SUMMARY: An 88-year-old white male who was found as an outpatient per lab to have acute renal failure with creatinine up to 3.3, where his normal creatinine was 1.8-2.0. He has also had some recent diarrhea and perhaps was mildly hypotensive and dehydrated as well. Blood pressure on admission was relatively low and came up with saline infusion. BUN 67, creatinine 3.3 on admission and came down to 60 and 2.4 respectively with a GFR from 18-26 before discharge. Urine was clear and free of protein. Renal sonogram showed no hydronephrosis or obstructive processes in the bladder or the kidney, and there was a large cystic lesion in the left kidney 8 cm, which had been previously seen. He was given IV saline and his losartan and chlorthalidone were held, and his blood pressure improved and renal function slowly improved as did his renal output. He is feeling much better and comfortable, will be followed as an outpatient at this point. FINAL DIAGNOSES: 1. Acute renal insufficiency secondary to vasomotor nephropathy from diarrhea medications. 2. Chronic kidney disease, 4, as baseline. 3. Large left renal cyst. OPERATIONS, PROCEDURES, COMPLICATIONS: None. CONSULTATION: Dr. Jerome. DISPOSITION: He will stay off losartan and chlorthalidone for now, rest of home meds remain the same. Office followup with BMP in 1 week and will resume blood pressure medicines if needed. He continues to be followed by a chainstitch seat joiner periodically as an outpatient as he has done in the past. JERRY LARA MD DR: KRYSTAL/nam JOB#: [id number] / [id number]
[2019-02-03 23:08] LABS: CREATININE, UR 81.3 mg/dL (Not Estab.)
== END 2019-02-03 09:50 | disposition home or self-care (01) | DRG 684 ==
LOC: 5 SOUTH 14:22 → EDSEX 14:22 → 5 SOUTH 14:32
PROVIDERS: ADMIT Family Medicine; ATTEND Family Medicine
DX: N17.0 Acute kidney failure with tubular necrosis (principal); I12.9 Hypertensive chronic kidney disease with stage 1 through stage 4 chronic kidney disease, or unspecified chronic kidney disease; I25.10 Atherosclerotic heart disease of native coronary artery without angina pectoris; N18.3 Chronic kidney disease, stage 3 (moderate); N28.1 Cyst of kidney, acquired; Z87.891 Personal history of nicotine dependence; Z95.1 Presence of aortocoronary bypass graft; Z88.0 Allergy status to penicillin; Z88.8 Allergy status to other drugs, medicaments and biological substances; Z79.899 Other long term (current) drug therapy; N14.1 Nephropathy induced by other drugs, medicaments and biological substances
CPT/HCPCS: 36415; 76770; 80048; 81001; 82570; 85025; J7042; 97110; 97535; G0378